=== PATIENT | female | born 1940 | race Caucasian/White ===

== ENCOUNTER → 2023-12-11 16:22 | Outpatient (REF) | payer MEDICARE, OTHER, SELFPAY | LOC: HWWDC 16:22 | PROVIDERS: ATTENDING PHYSICIAN Nurse Practitioner Adult Health | DX: Z12.31 Encounter for screening mammogram for malignant neoplasm of breast (principal) | CPT/HCPCS: 77063; 77067 ==

== ENCOUNTER → 2024-11-03 17:07 | Outpatient (REF) | payer MEDICARE, OTHER, SELFPAY | LOC: RAD 17:07 | PROVIDERS: ATTENDING PHYSICIAN Internal Medicine; FAMILY PHYSICIAN Family Medicine | DX: R05.1 Acute cough (principal) | CPT/HCPCS: 71046 ==

== ENCOUNTER → 2024-11-19 11:04 | Outpatient (REF) | payer MEDICARE, OTHER, SELFPAY | LOC: HWWDC 11:04 | PROVIDERS: ATTENDING PHYSICIAN Family Medicine | DX: Z12.31 Encounter for screening mammogram for malignant neoplasm of breast (principal) | CPT/HCPCS: 77063; 77067 ==

== ENCOUNTER → 2024-12-01 12:57 | Outpatient (REF) | payer MEDICARE, OTHER, SELFPAY | LOC: HWRCS 12:57 | PROVIDERS: ATTENDING PHYSICIAN Internal Medicine Cardiovascular Disease; FAMILY PHYSICIAN Family Medicine | DX: I10 Essential (primary) hypertension (principal); I50.32 Chronic diastolic (congestive) heart failure | CPT/HCPCS: 93306 ==

== ENCOUNTER 2025-03-12 07:18 | Day surgery (SDC) | payer MEDICARE, OTHER, SELFPAY ==
[2025-03-12 07:50] VITALS: BP 161/82; BMI 30.5
[2025-03-12 07:58] VITALS: BP 161/82
--- NOTE | 2025-03-12 09:31 | ITS.CL.CATH ---
Machine Maintenance Repairer - Catheterization
Cardiac Catheterization
Procedure Report:
RIGHT HEART CATHETERIZATION
Date of Procedure: 03/12/2025
Referring: Ralph Hardign D.O.
INDICATION: Persistent dyspnea on exertion, CKD, assessment of filling pressures.
ACCESS:
5 Dutch right antecubital vein using a previously placed IV.
CATHETERS:
5 Dutch balloon wedge.
PROCEDURE:
An IV was placed by the nursing staff in the right antecubital fossa. The patient was prepped and draped in standard sterile fashion, including copious cleansing of the IV and IV site. The area around the IV was anesthetized with 1% lidocaine. A 5
Dutch sheath was inserted into the basilic vein after exchanging the IV over a wire. A 5 Dutch balloon wedge catheter was advanced through the sheath into the superior vena cava. An SVC oxygen saturation was drawn. The balloon wedge catheter was
advanced into the pulmonary artery and a pulmonary artery oxygen saturation was drawn. Arterial oxygen saturation was assumed from pulse oximetry. Cardiac output was calculated using the Katerin equation. The PA, wedge, RV and RA pressures were
measured on pullback. The balloon wedge catheter was removed. The 5 Dutch sheath was removed and manual pressure was held for hemostasis.
Weight (kg): 74.4
PA (s/d/x mmHg):
PCWP (a/v/x mmHg):
RV (s/x mmHg): 51/9
RA (a/v/x mmHg):
AO (s/d/x mmHg): 162/80/115 (non-invasive)
SVC SvO2 (%): 73.1
IVC SvO2 (%): Not obtained.
RA SvO2 (%): Not obtained.
RV SvO2 (%): Not obtained.
PA SvO2 (%): 72.5
SaO2 (%): 98.0 (assumed)
Hbg (g/dL): 13.6
Katerin
CO (liters/minute): 3.31
CI (liters/minute/m2): 1.89
Thermodilution
CO (liters/minute): Not performed.
CI (liters/minute/m2): Not performed.
TPG (mmHg): 15
PVR (Martinez Units): 4.53
AVO2 Difference (Volume %): 4.72
Cardiac Power Output (hutson): 0.84 (MAP * CO)/451 (normal 0.5 - 0.7; 0.4 - 0.6 in the elderly)
Cardiac Power Index (hutson/m2): 0.48 (MAP * CI)/451
Mariella: 3.3 (PAs-PAd)/RA
Radiation (mGy): 8.04
DAP (cm2.Gy): 1.0898
Fluoroscopy time (minutes): 2.0
CONCLUSION:
1. Mildly elevated filling pressures (PCWP = 16 mmHg at 74.4 kg).
2. 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 The patient is not chronically hypoxic.
3. Preserved cardiac function (cardiac index = 1.89 L/min/m�, cardiac power output = 0.84 W, Mariella = 3.3).
RECOMMENDATIONS:
1. Expectant management after right heart catheterization via right antecubital approach.
2. Maintain current diuretics given mild nature of wedge pressure elevation.
3. CT chest to evaluate lung parenchyma.
4. VQ scan to evaluate for chronic thromboembolic disease.
5. Start amlodipine 2.5 mg daily.
6. Encourage increased physical activity to improve cardiovascular fitness.
Copy to: Ralph Harding D.O., Kel Weir D.O.
Ralph Harding D.O., FACC, FACP
[2025-03-12 09:48] VITALS: BP 131/92
[2025-03-12 10:03] VITALS: BP 134/91
[2025-03-12 10:19] VITALS: BP 137/89
[2025-03-12 10:30] VITALS: BP 138/89
== END 2025-03-12 10:40 | disposition home or self-care (01) ==
LOC: CATH 07:18
PROVIDERS: ATTENDING PHYSICIAN Internal Medicine Cardiovascular Disease; FAMILY PHYSICIAN Family Medicine
DX: I27.20 Pulmonary hypertension, unspecified (principal); R06.09 Other forms of dyspnea; I13.0 Hypertensive heart and chronic kidney disease with heart failure and stage 1 through stage 4 chronic kidney disease, or unspecified chronic kidney disease; N18.9 Chronic kidney disease, unspecified; I50.32 Chronic diastolic (congestive) heart failure
CPT/HCPCS: 93005; 93451; C1894